=== PATIENT | male | born 1980 | race Caucasian/White ===

== ENCOUNTER 2022-03-18 22:24 | Emergency (ER) | payer OTHER ==
[2022-03-18 22:44] VITALS: BMI 27.1
[2022-03-18] MEDS ORDERED: morphine CARPU-JECT 4 MG/1 ML DISP.SYRIN IVPUSH ONE (22:52)
[2022-03-18] MEDS ORDERED: morphine SULFATE 4 MG/ML VIAL ONE (22:56)
[2022-03-18 23:15] LABS: BASO % 0.6 % (0-2.0); EOS % 1.4 % (0-4.5); HEMATOCRIT 41.3 % (35.4-49); HEMOGLOBIN 14.3 GM/dL (11.7-16.9); LYMPH % 24.8 % (8-40); MCH 30.5 pg (25.7-33.7); MCHC 34.6 g/dl (32.0-35.9); MEAN CELL VOLUME 88.2 fl (80-96); MEAN PLT VOLUME 8.7 fl (7.5-11.1); NEUT % 65.2 % (42.8-82.8); PLATELET COUNT 260 10^3/uL (134-434); RBC 4.69 M/mm3 (4.00-5.60); RDW 13.4 % (11.9-15.9); WHITE BLOOD COUNT 8.3 K/mm3 (4.0-10.0)
[2022-03-18 23:25] LABS: INR 1.05 (0.83-1.09); PROTHROMBIN TIME (PATIENT) 12.1 SEC (9.7-13.0)
[2022-03-18 23:27] LABS: ACTIVATED PTT 30.5 SECONDS (25.2-36.5)
[2022-03-18 23:47] LABS: CALCIUM 8.9 mg/dL (8.5-10.1)
[2022-03-18 23:48] LABS: ALBUMIN 3.8 g/dl (3.4-5.0); BLOOD UREA NITROGEN 16.9 mg/dL (7-18)
[2022-03-18 23:50] LABS: CREATININE 0.7 mg/dL (0.55-1.3)
[2022-03-18 23:53] LABS: BILIRUBIN,TOTAL 0.6 mg/dL (0.2-1)
[2022-03-19] MEDS ORDERED: PROPOFOL 1,000,000 MCG/100 ML VIAL ONE (00:51)
[2022-03-19 01:28] VITALS: TEMP 98.4
[2022-03-19] MEDS ORDERED: PROPOFOL 200 MG/20 ML VIAL IVPUSH ONE ×2 (01:33→02:22)
[2022-03-19] MEDS ORDERED: PROPOFOL 20 ML ONE (01:42)
[2022-03-19] MEDS ORDERED: LIDOCAINE 1%/EPI 1:100000 (20 ML MULTI DOSE VIAL) ONE (01:57)
[2022-03-19 04:15] VITALS: RESP 23
[2022-03-19 04:17] VITALS: BP 131/91; PULSE 82
== END 2022-03-19 04:39 | disposition home or self-care (01) ==
LOC: JER 22:24
PROC: 0RSKXZZ Reposition Left Shoulder Joint, External Approach (ICD-10-PCS; principal; 2022-03-18)
PROC: 3E033NZ Introduction of Analgesics, Hypnotics, Sedatives into Peripheral Vein, Percutaneous Approach (ICD-10-PCS; 2022-03-18)
PROC: 3E033NZ Introduction of Analgesics, Hypnotics, Sedatives into Peripheral Vein, Percutaneous Approach (ICD-10-PCS; 2022-03-18)
PROC: 3E033GC Introduction of Other Therapeutic Substance into Peripheral Vein, Percutaneous Approach (ICD-10-PCS; 2022-03-18)
DX: S43.085A Other dislocation of left shoulder joint, initial encounter (principal); V00.181A Fall from other rolling-type pedestrian conveyance, initial encounter
CPT/HCPCS: 36415; 73030-TC-LT-FY; 73070-TC-LT-FY; 80053; 80307; 85025; 85610; 85730; 86850; 86900; 86901; 99285-25